=== PATIENT | female | born 1980 | race American Indian/Alaskan Native ===

== ENCOUNTER 2017-05-18 00:52 | Emergency (ER) | payer MEDICAID ==
--- NOTE | 2017-05-18 01:06 | ED PDOC ---
HPI: Psych/Substance Abuse Time Seen by Provider: 05/18/17 01:02 Chief Complaint (Nursing): Alcohol Ingestion Chief Complaint (Provider): etoh History Per: Patient, EMS, Family () Additional Complaint(s): Patient arrives via ambulance with for evaluation of facial and head injuries sustained status post trip and fall. states that patient was intoxicated when she fell to the ground. Patient did have a five-minute loss of consciousness witnessed by . She sustained facial abrasions and she is not sure of her last tetanus. Patient admits to drinking tonight and states she drinks daily. She denies any associated drug use. Past Medical History Reviewed: Historical Data, Nursing Documentation, Vital Signs Vital Signs: Last Vital Signs Temp 97.1 F L 05/18/17 00:57 Pulse 84 05/18/17 00:57 Resp 16 05/18/17 00:57 BP 127/97 H 05/18/17 00:57 Pulse Ox 100 05/18/17 00:57 - Medical History PMH: Anxiety, Depression, HTN - Surgical History Other surgeries: breast reduction - Family History Family History: States: No Known Family Hx - Living Arrangements Living Arrangements: With Family - Social History Current smoker - smoking cessation education provided: No Alcohol: Occasional - Immunization History Hx Tetanus Toxoid Vaccination: No (not sure of last tetanus) - Home Medications Home Medications: Ambulatory Orders Medication Instructions Recorded Folic Acid 1 mg PO DAILY 01/18/16 Multivitamin [Daily John] 1 tab PO DAILY 01/18/16 Thiamine Mononitrate [Optimum 100 mg PO DAILY 01/18/16 Vitamin B-1] - Allergies Allergies/Adverse Reactions: Allergies Allergy/AdvReac Type Severity Reaction Status Date / Time No Known Allergies Allergy Verified 05/18/17 00:57 Review of Systems ROS Statement: Except As Marked, All Systems Reviewed And Found Negative Neurological: Positive for: Other (facial and head injury with LOC) Psych: Positive for: Other (etoh) Physical Exam - Reviewed Nursing Documentation Reviewed: Yes Vital Signs Reviewed: Yes - Physical Exam Appears: Positive for: Well, Non-toxic, No Acute Distress Head Exam: Negative for: ATRAUMATIC (abrasions to left lateral orbit) Skin: Negative for: Rash Eye Exam: Positive for: Normal appearance, EOMI, PERRL ENT: Positive for: Other (left front upper incisor tooth is chipped, superficial 1 cm laceration noted to mucosal surface of lower lip, not involving chris border, no active bleeding, airway patent, uvula midline) Neck: Positive for: Normal Cardiovascular/Chest: Positive for: Regular Rate, Rhythm Respiratory: Positive for: Normal Breath Sounds Back: Positive for: Normal Inspection Extremity: Positive for: Normal ROM, Other (fluid filled blister left ankle region with no acute infection) Neurologic/Psych: Positive for: Alert, Other (intoxicated, answers some questions appopriately) - ECG O2 Sat by Pulse Oximetry: 100 Pulse Ox Interpretation: Normal - Other Rad CT head X-Ray: Read By Radiologist X-Ray Interpretation: see below CT facial bones X-Ray: Read By Radiologist X-Ray Interpretation: see below Medical Decision Making Medical Decision Makin37 year old acutely intoxicated female with head and facial injuries s/p fall Plan: test CT head and facial bones Tetanus booster CT head: Brain: No significant white matter disease. Mild prominence of the right perimesencephalic cistern, a variant versus a possible small benign arachnoid cyst, measures approximately 1.3 x 0.5 CM. No hemorrhage. No edema. Ventricles: Unremarkable. No ventriculomegaly. Bones/joints: Unremarkable. No acute fracture. Soft tissues: No significant acute soft tissue findings. Sinuses : Unremarkable as visualized. No acute sinusitis. Mastoid air cells: Unremarkable as visualized. No mastoid effusion. IMPRESSION: No acute intracranial findings. Clinical correlation and followup is recommended as clinically warranted CT facial bones: FINDINGS: Bones/joints: No acute fracture. Soft tissues: Minimal left facial, periorbital soft tissue swelling. Soft tissue swelling over the chin with minimal soft tissue emphysema and small radiopaque foreign bodies, which measures approximately 3 mm each. Calcifications within the nasal soft tissues. Orbits: Unremarkable. Sinuses: Unremarkable. No air-fluid levels. IMPRESSION: No acute fracture. Tiny radiopaque foreign bodies. Clinical correlation and followup is recommended as clinically warranted. No open wounds noted to chin, no active, bleeding, no intra-oral FB's noted. Brazer Crawler Torch attempted to clean lacerations to lower lip but patient would not allow for this. She would not keep her head still and kept pushing advertising copy writer's hand away. at bedside is aware of CT results. is sober and is willing to take patient home and assume responsibility of her given that she is intoxicated. Patient is stable for discharge with . Disposition - Clinical Impression Clinical Impression: Alcohol abuse with intoxication, Facial abrasion, Head injury, Requires a booster tetanus, Facial contusion - Patient ED Disposition Is Patient to be Admitted: No Counseled Patient/Family Regarding: Studies Performed, Diagnosis, Need For Followup - Disposition Referrals: [facility] [Outside] Disposition: Routine/Home Disposition Time: 04:21 Condition: FAIR Additional Instructions: Keep wounds clean and dry. Follow up with clinic or primary care doctor. Instructions: Diphtheria/Acellular Pertussis/Tetanus Vaccine (DTaP) (By injection), Head Injury (ED), Alcohol Intoxication (ED), Abrasion (ED), Facial Contusion (ED) Forms: [facility] (Romansh)
[2017-05-18 01:09] VITALS: RESP 16; O2SAT 100
[2017-05-18 05:22] VITALS: BP 125/80; PULSE 75; TEMP 97.9
--- NOTE | 2017-05-18 11:07 | CT ---
PROCEDURE: CT scan of the brain dated 02/10/2017 HISTORY: trauma COMPARISON: Correlation made with concurrent CT scan maxillofacial skeleton. Lester TECHNIQUE: Axial computed tomography images were obtained through the head/brain without intravenous contrast. Radiation dose: Total exam DLP = 1255.82 mGy-cm. This CT exam was performed using one or more of the following dose reduction techniques: Automated exposure control, adjustment of the mA and/or kV according to patient size, and/or use of iterative reconstruction technique. FINDINGS: HEMORRHAGE: No acute parenchymal, subarachnoid or hemorrhage. BRAIN: No evidence of large acute infarct. No obvious parenchymal nor extra-axial mass. Questionable prominent subarachnoid space versus tiny arachnoid cyst right perimesencephalic cistern. Mild age-appropriate volume loss. VENTRICLES: No obstructive hydrocephalus CALVARIUM: Calvarium is intact. PARANASAL SINUSES: Paranasal sinuses well-developed and currently well-aerated. MASTOID AIR CELLS: Unremarkable as visualized. No inflammatory changes. OTHER FINDINGS: None. IMPRESSION: No acute intracranial hemorrhage. Questionable prominent subarachnoid space versus tiny arachnoid cyst right perimesencephalic cistern.
--- NOTE | 2017-05-18 11:16 | CT ---
PROCEDURE: CT scan maxillofacial skeleton 05/18/2017 HISTORY: Trauma COMPARISON: Comparison made with concurrent CT scan of the brain. TECHNIQUE: Contiguous helical/transaxial CT images of the maxillofacial bones were obtained. Coronal and sagittal reformats were generated. Radiation dose: Total exam DLP = 698.25 mGy-cm. This CT exam was performed using one or more of the following dose reduction techniques: Automated exposure control, adjustment of the mA and/or kV according to patient size, and/or use of iterative reconstruction technique. . FINDINGS: NASAL BONES: No evidence of acute maxillofacial skeletal fracture. The osseous structures appear grossly intact. Note made of few tiny curvilinear and rounded calcific densities within the anterior nasal soft tissues- nonspecific. ORBITS: Bony orbits appear intact. Orbital contents unremarkable. The globes intact and lenses appropriately located. There are no retrobulbar hemorrhages or collections. Optic nerves and extraocular musculature unremarkable. PARANASAL SINUSES/ MASTOIDS: The visualized paranasal sinuses well-developed and currently well-aerated. There are no fluid levels seen to suggest acute sinusitis. MAXILLA: The maxilla appears intact including the anterior nasal spine. There appears to be some mild left premaxillary and infraorbital/periorbital soft tissue swelling. MANDIBLE/ TEMPOROMANDIBULAR JOINTS: There is localized soft tissue swelling over the mid and bilateral symphysis region and lower lip left-side greater than right with few tiny radiopaque densities in the subcutaneous tissues and skin surface on the left side within few bubbles of subcutaneous air suggesting overlying laceration. SKULL BASE: Unremarkable. TEMPORAL BONES: Middle ears and mastoid grossly unremarkable. OTHER FINDINGS: None. IMPRESSION: No evidence of acute displaced maxillofacial skeletal fracture. . The minor left premaxillary and periorbital soft tissue swelling. There is also localized swelling over the mandible and lower lip more so on the left side with few tiny radiopaque foreign bodies possibly representing gravel or likely glass with few bubbles of subcutaneous air suggesting overlying laceration. Nonspecific calcifications within the anterior nasal soft tissues. Preliminary report provided by overnight radiology service
== END 2017-05-18 05:22 | disposition home or self-care (01) ==
LOC: H.ER 00:52
DX: F10.129 Alcohol abuse with intoxication, unspecified (principal); S00.81XA Abrasion of other part of head, initial encounter; S09.90XA Unspecified injury of head, initial encounter; Z23 Encounter for immunization; S00.83XA Contusion of other part of head, initial encounter; Z86.59 Personal history of other mental and behavioral disorders; I10 Essential (primary) hypertension; Y90.8 Blood alcohol level of 240 mg/100 ml or more
CPT/HCPCS: 70450; 70486; 81025; 82948; 90471; 90715; 99283; G0480

== ENCOUNTER 2017-05-24 14:26 | Observation (INO) | payer SELFPAY ==
--- NOTE | 2017-05-24 14:32 | ED PDOC ---
HPI: Psych/Substance Abuse Time Seen by Provider: 05/24/17 14:30 Chief Complaint (Provider): etoh History Per: EMS Additional Complaint(s): BIBA by Police and EMS for public intoxication. Patient has history of etoh abuse and was found in street yelling and making a scene. She is known to ED for visits related to etoh abuse. Past Medical History Reviewed: Historical Data, Nursing Documentation, Vital Signs - Medical History PMH: Anxiety, Depression, HTN - Family History Family History: States: No Known Family Hx - Living Arrangements Living Arrangements: With Family - Social History Alcohol: > 2 Drinks/Day - Immunization History Hx Tetanus Toxoid Vaccination: Yes - Home Medications Home Medications: Ambulatory Orders Medication Instructions Recorded Folic Acid 1 mg PO DAILY 01/18/16 Multivitamin [Daily John] 1 tab PO DAILY 01/18/16 Thiamine Mononitrate [Optimum 100 mg PO DAILY 01/18/16 Vitamin B-1] - Allergies Allergies/Adverse Reactions: Allergies Allergy/AdvReac Type Severity Reaction Status Date / Time No Known Allergies Allergy Verified 05/18/17 00:57 - Laboratory Results Result Diagrams: 05/24/17 15:10 05/24/17 15:10 Medical Decision Making Medical Decision Makin37 year old intoxicated female Plan: 4 point restraints due to acute agitation, combativeness and elopement risk 2mg IM ativan, 5 mg IM haldol Admit to ED observation CBC CMP BAL UDS test ED OBSERVATION Date of observation admission: 05/24/17 Time of observation admission: 15:07 - Observation admission statement Patient is being placed in observation because:: ETOH, agitation - Goals of Observation Goals of observation are:: One-to-one bedside observation for acute alcohol intoxication, agitation and combativeness. - Progress Note Progress Note: 05/24/17 15:07 Patient arrives acutely agitated, trying to elope from ED and trying to injure ED staff members. Security was called to bedside and patient was placed in 4 point restraints for patient safety and safety of ED staff. Patient medicated with 2 mg IM Ativan and 5 mg IM Haldol for acute agitation. 05/24/17 15:55 Patient noted to be hypotensive at 86/43, Dr. Mccoy aware, fluid bolus ordered. Will continue to monitor patient. 05/24/17 16:53 BAL: 420, BP now 93/39, bolus is infusing 05/24/17 17:00 Restraints removed, BP now 99/56, patient is asleep, arousable with no airway compromise 05/24/17 16:20 Patient is asleep with stable vitals, 1:1 was discontinued. 05/24/17 18:10 Patient is asleep, arousable, vital signs stable, no airway compromise 05/24/17 20:20 Patient is asleep, arousable, vital signs stable, no airway compromise 05/24/17 22:09 Patient is awake, alert, vital signs stable, patient has steady gait, she is asking to go home. Patient is stable for discharge. Disposition - Clinical Impression Clinical Impression: Alcohol dependence, Alcohol abuse with intoxication - Patient ED Disposition Is Patient to be Admitted: No Counseled Patient/Family Regarding: Diagnosis, Need For Followup - Disposition Disposition: Routine/Home Disposition Time: 22:10 Condition: STABLE Results - Lab Results Lab Results: 05/24/17 05/24/17 15:10 15:10 WBC 7.8 RBC 4.03 Hgb 13.3 Hct 39.8 MCV 98.8 D MCH 33.0 H MCHC 33.4 RDW 13.6 Plt Count 229 MPV 9.3 Neut % (Auto) 57.9 Lymph % (Auto) 28.7 [place] % (Auto) 12.0 H Eos % (Auto) 0.2 Baso % (Auto) 1.2 Neut # 4.5 Lymph # 2.2 [place] # 0.9 H Eos # 0.0 Baso # 0.1 Sodium 146 Potassium 4.1 Chloride 105 Carbon Dioxide 18 L Anion Gap 27 H BUN 6 L Creatinine 0.9 Est GFR ( Amer) > 60 Est GFR (Non-Af Amer) > 60 Random Glucose 130 H Calcium 10.0 Total Bilirubin 0.5 AST 152 H ALT 113 H D Alkaline Phosphatase 79 Total Protein 8.6 H Albumin 5.0 Globulin 3.6 Albumin/Globulin Ratio 1.4 Alcohol, Quantitative 420 H*
[2017-05-24 15:27] LABS: BASO # 0.1 K/uL (0.0-0.2); BASO % 1.2 % (0.0-2.0); EOS % 0.2 % (0.0-4.0); HEMATOCRIT 39.8 % (34.0-47.0); LYMPH # 2.2 K/uL (1.0-4.3); LYMPH % 28.7 % (20.0-40.0); MEAN CELL VOLUME 98.8 fl (81.0-99.0); MEAN CORPUSCULAR HGB CONC 33.4 g/dL (33.0-37.0); MEAN PLATELET VOLUME 9.3 fl (7.2-11.7); MONO # 0.9 K/uL (0.0-0.8); NEUT # 4.5 K/uL (1.8-7.0); NEUT % 57.9 % (50.0-75.0); RED CELL DISTRIBUTION WIDTH 13.6 % (11.5-14.5); WHITE BLOOD COUNT 7.8 K/uL (4.8-10.8)
[2017-05-24 15:38] LABS: ALB/GLOB RATIO 1.4 (1.0-2.1); ALKALINE PHOSPHATASE 79 U/L (38-126); ALT/SGPT 113 U/L (9-52); AST/SGOT 152 U/L (14-36); BILIRUBIN,TOTAL 0.5 mg/dl (0.2-1.3); BLOOD UREA NITROGEN 6 mg/dl (7-17); CARBON DIOXIDE 18 mmol/L (22-30); CHLORIDE 105 mmol/L (98-107); GFR AFRICAN-AMERICAN > 60; GLUCOSE,RANDOM 130 mg/dL (65-105); POTASSIUM 4.1 MMOL/L (3.6-5.0); SODIUM 146 mmol/l (132-148); TOTAL PROTEIN 8.6 G/DL (6.3-8.2)
[2017-05-24] MEDS ORDERED: Sodium Chloride 0.9% 1,000 ML IV STA (15:57)
[2017-05-24 16:16] LABS: ALCOHOL SERUM 420 mg/dl (0-10)
[2017-05-24 19:40] VITALS: BP 100/59; PULSE 83; RESP 16; O2SAT 99
== END 2017-05-24 22:00 | disposition home or self-care (01) ==
LOC: H.ER 14:26 → H.EROBSV 15:04
PROVIDERS: ADMIT Emergency Medicine; ATTEND Emergency Medicine
DX: F10.129 Alcohol abuse with intoxication, unspecified (principal); I10 Essential (primary) hypertension; F32.9 Major depressive disorder, single episode, unspecified; F41.9 Anxiety disorder, unspecified; Y90.8 Blood alcohol level of 240 mg/100 ml or more
CPT/HCPCS: 80053; 81025; 85025; 96372; 99285; G0378; G0480; J1630; J2060; J7040

== ENCOUNTER 2017-06-14 00:19 | Observation (INO) | payer SELFPAY ==
--- NOTE | 2017-06-14 00:57 | ED PDOC ---
HPI: Psych/Substance Abuse Time Seen by Provider: 06/14/17 00:21 Chief Complaint (Nursing): Alcohol Ingestion Chief Complaint (Provider): etoh History Per: Patient, EMS Additional History Per: Patient, EMS Additional Complaint(s): 37 y/o female brought in by EMS for eval of acute alcohol intoxication. Patient with slurred speech and alcohol on breath, admits to drinking tonight. Denies acute medical or psychiatric complaints. Past Medical History Reviewed: Historical Data, Nursing Documentation, Vital Signs Vital Signs: Last Vital Signs Temp 98.7 F 06/14/17 00:21 Pulse 78 06/14/17 00:21 Resp 18 06/14/17 00:21 BP 150/100 H 06/14/17 00:21 Pulse Ox 100 06/14/17 00:21 - Medical History PMH: Anxiety, Depression, HTN - Family History Family History: States: No Known Family Hx - Immunization History Hx Tetanus Toxoid Vaccination: Yes - Home Medications Home Medications: Ambulatory Orders Medication Instructions Recorded Folic Acid 1 mg PO DAILY 01/18/16 Multivitamin [Daily John] 1 tab PO DAILY 01/18/16 Thiamine Mononitrate [Optimum 100 mg PO DAILY 01/18/16 Vitamin B-1] - Allergies Allergies/Adverse Reactions: Allergies Allergy/AdvReac Type Severity Reaction Status Date / Time No Known Allergies Allergy Verified 05/18/17 00:57 Review of Systems ROS Statement: Except As Marked, All Systems Reviewed And Found Negative Physical Exam - Reviewed Nursing Documentation Reviewed: Yes Vital Signs Reviewed: Yes - Physical Exam Appears: Positive for: Well, Non-toxic, No Acute Distress Head Exam: Positive for: ATRAUMATIC, NORMAL INSPECTION, NORMOCEPHALIC Skin: Positive for: Normal Color Eye Exam: Positive for: Normal appearance Cardiovascular/Chest: Positive for: Regular Rate, Rhythm Respiratory: Positive for: Normal Breath Sounds Back: Positive for: Normal Inspection Extremity: Positive for: Normal ROM Neurologic/Psych: Positive for: Alert, Oriented - Laboratory Results Result Diagrams: 06/14/17 02:51 06/14/17 02:51 - ECG O2 Sat by Pulse Oximetry: 100 - Progress ED Course And Treament: Patient attempting to get out of bed to find significant other with unsteady gait. Escorted back to bed and placed on 1:1. Patient again attempted to get out of bed, aggressive, agitated. Patient unwilling to cooperate with alternative measures offered; restrained and medicated for acute agitation/safety. ED OBSERVATION Date of observation admission: 06/14/17 Time of observation admission: 02:13 - Observation admission statement Patient is being placed in observation because:: acute alcohol intoxication - Goals of Observation Goals of observation are:: observe for clinical sobriety - Progress Note Progress Note: 06/14/17 03:14 Patient sleeping 06/14/17 4:45 patient sleeping; no distress 6:00 Patient sleeping; no distress Disposition - Clinical Impression Clinical Impression: Alcohol abuse with intoxication - Disposition Disposition: Transfer of Care Disposition Time: 06:00 Condition: STABLE Patient Signed Over To: Tim Mcnulty Handoff Comments: pending sobriety
[2017-06-14 02:53] LABS: BASO # 0.1 K/uL (0.0-0.2); BASO % 1.3 % (0.0-2.0); EOS % 0.4 % (0.0-4.0); HEMATOCRIT 37.7 % (34.0-47.0); LYMPH # 1.5 K/uL (1.0-4.3); LYMPH % 19.9 % (20.0-40.0); MEAN CELL VOLUME 99.4 fl (81.0-99.0); MEAN CORPUSCULAR HEMOGLOBIN 32.6 pg (27.0-31.0); MEAN CORPUSCULAR HGB CONC 32.8 g/dL (33.0-37.0); MEAN PLATELET VOLUME 8.8 fl (7.2-11.7); MONO # 0.3 K/uL (0.0-0.8); MONO % 4.6 % (0.0-10.0); NEUT # 5.6 K/uL (1.8-7.0); NEUT % 73.8 % (50.0-75.0); NRBC % 0.1 % (0.0-0.0); RED CELL DISTRIBUTION WIDTH 13.7 % (11.5-14.5); WHITE BLOOD COUNT 7.6 K/uL (4.8-10.8)
[2017-06-14 03:08] LABS: BLOOD UREA NITROGEN 7 mg/dl (7-17); GFR AFRICAN-AMERICAN > 60; GLUCOSE,RANDOM 84 mg/dL (65-105); SODIUM 148 mmol/l (132-148)
[2017-06-14 03:09] LABS: ALB/GLOB RATIO 1.4 (1.0-2.1); ALT/SGPT 61 U/L (9-52); AST/SGOT 55 U/L (14-36); BILIRUBIN,TOTAL 0.3 mg/dl (0.2-1.3); CALCIUM 8.5 mg/dL (8.4-10.2); CARBON DIOXIDE 23 mmol/L (22-30); CHLORIDE 110 mmol/L (98-107); TOTAL PROTEIN 7.3 G/DL (6.3-8.2)
[2017-06-14 03:10] LABS: ALKALINE PHOSPHATASE 53 U/L (38-126)
[2017-06-14 03:25] LABS: ALCOHOL SERUM 388 mg/dl (0-10)
[2017-06-14] MEDS ORDERED: Potassium Chloride 20 mEq ER Tab PO ONE ×2 (03:35→07:00)
--- NOTE | 2017-06-14 05:50 | ED PDOC ---
- Laboratory Results Result Diagrams: 06/14/17 02:51 06/14/17 02:51 - ECG O2 Sat by Pulse Oximetry: 100 (RA) Pulse Ox Interpretation: Normal Medical Decision Making Medical Decision Making: Time: 06:00 --Patient is signed out by Elizabet White PA-C to me, pending clinical sobriety. See ED-OBS for further documentation Scribe Attestation: Documented by Anabela Herzog, acting as a scribe for Tim Mcnulty MD Provider Scribe Attestation: All medical record entries made by the Scribe were at my direction and personally dictated by me. I have reviewed the chart and agree that the record accurately reflects my personal performance of the history, physical exam, medical decision making, and the department course for this patient. I have also personally directed, reviewed, and agree with the discharge instructions and disposition. Disposition Counseled Patient/Family Regarding: Diagnosis, Need For Followup - Clinical Impression Clinical Impression: Alcohol abuse with intoxication - POA Present On Arrival: None - Disposition Disposition: Routine/Home Disposition Time: 02:13 Condition: STABLE ED OBSERVATION Date of observation admission: 06/14/17 Time of observation admission: 02:13 - Observation admission statement Patient is being placed in observation because:: ETOH intoxication - Goals of Observation Goals of observation are:: Clinical sobriety - Progress Note Progress Note: 06/14/17 Time: 06:00 --Patient is resting. Vital signs stable. Time: 07:00 --Patient is ambulating in the ED with steady gait. No signs of intoxication. Patient is stable for discharge home. Clinical Impression: Alcohol intoxication
[2017-06-14 06:54] VITALS: BP 142/82; PULSE 82; RESP 14; TEMP 97.9
[2017-06-14 07:02] VITALS: O2SAT 100
== END 2017-06-14 07:22 | disposition home or self-care (01) ==
LOC: H.ER 00:19 → H.EROBSV 02:13
PROVIDERS: ADMIT Emergency Medicine; ATTEND Emergency Medicine
DX: F10.129 Alcohol abuse with intoxication, unspecified (principal); I10 Essential (primary) hypertension; F41.9 Anxiety disorder, unspecified; F32.89 Other specified depressive episodes; Y90.8 Blood alcohol level of 240 mg/100 ml or more
CPT/HCPCS: 80053; 85025; 96372; 99283; G0378; G0480; J1630; J2060

== ENCOUNTER 2017-06-29 22:19 | Emergency (ER) | payer SELFPAY ==
[2017-06-29 23:41] LABS: BASO # 0.1 K/uL (0.0-0.2); BASO % 1.7 % (0.0-2.0); EOS % 0.5 % (0.0-4.0); HEMATOCRIT 37.3 % (34.0-47.0); LYMPH # 1.4 K/uL (1.0-4.3); LYMPH % 34.9 % (20.0-40.0); MEAN CELL VOLUME 97.8 fl (81.0-99.0); MEAN CORPUSCULAR HEMOGLOBIN 32.5 pg (27.0-31.0); MEAN CORPUSCULAR HGB CONC 33.2 g/dL (33.0-37.0); MEAN PLATELET VOLUME 8.8 fl (7.2-11.7); MONO # 0.6 K/uL (0.0-0.8); NEUT % 47.9 % (50.0-75.0); NRBC % 0.1 % (0.0-0.0); RED CELL DISTRIBUTION WIDTH 13.6 % (11.5-14.5); WHITE BLOOD COUNT 4.1 K/uL (4.8-10.8)
--- NOTE | 2017-06-29 23:41 | ED PDOC ---
HPI: Psych/Substance Abuse Time Seen by Provider: 06/29/17 23:02 Chief Complaint (Nursing): Lower Extremity Problem/Injury Chief Complaint (Provider): Lower Extremity Problem/Injury ED Caveat: Intoxicated History Per: Patient History/Exam Limitations: intoxication Onset/Duration Of Symptoms: Days (x2) Current Symptoms Are (Timing): Still Present Suicide/Self Injury Attempted (Context): None Modifying Factor(s): Alcohol Associated Symptoms: Suicidal Thoughts Additional Complaint(s): Dutch Mckeon is a 37 year old female with previous medical history of alcoholism, hypertension, anxiety and depression, who presents to the emergency department with a complaint of left thigh injury associated with intoxication, suicidal and homicidal ideation ongoing for 2 days. Denied any further medial complaints. Patient stated she was recently admitted in outpatient psychiatric hospital. History is unreliable due to patient's current state of intoxication. PMD: none provided Past Medical History Reviewed: Historical Data, Nursing Documentation, Vital Signs Vital Signs: Last Vital Signs Temp 98.5 F 06/29/17 22:28 Pulse 111 H 06/29/17 22:28 Resp 20 06/29/17 22:28 BP 149/101 H 06/29/17 22:28 Pulse Ox 100 06/29/17 22:28 - Medical History PMH: Anxiety, Depression, HTN - Family History Family History: States: Unknown Family Hx - Social History Current smoker - smoking cessation education provided: Yes Ex-Smoker (has not smoked in the last 12 months): No Alcohol: > 2 Drinks/Day Drugs: Denies - Immunization History Hx Tetanus Toxoid Vaccination: Yes - Home Medications Home Medications: Ambulatory Orders Medication Instructions Recorded Folic Acid 1 mg PO DAILY 01/18/16 Multivitamin [Daily John] 1 tab PO DAILY 01/18/16 Thiamine Mononitrate [Optimum 100 mg PO DAILY 01/18/16 Vitamin B-1] - Allergies Allergies/Adverse Reactions: Allergies Allergy/AdvReac Type Severity Reaction Status Date / Time No Known Allergies Allergy Verified 05/18/17 00:57 Review of Systems Review Of Systems: ROS cannot be obtained secondary to pt's inabilty to answer questions. (intoxication) Musculoskeletal: Positive for: Leg Pain (left thigh injury) Psych: Positive for: Suicidal ideation (and homicidal ideation) Physical Exam - Reviewed Nursing Documentation Reviewed: Yes Vital Signs Reviewed: Yes - Physical Exam Appears: Positive for: No Acute Distress Head Exam: Positive for: ATRAUMATIC, NORMAL INSPECTION, NORMOCEPHALIC Skin: Positive for: Normal Color Eye Exam: Positive for: Normal appearance, Conjunctival injection Neck: Positive for: Normal, Supple Cardiovascular/Chest: Positive for: Regular Rate, Rhythm Respiratory: Positive for: Normal Breath Sounds, Accessory Muscle Use. Negative for: Decreased Breath Sounds, Respiratory Distress Pulses-Dorsalis Pedis (L): 2+ Extremity: Positive for: Normal ROM, Tenderness (left anterior thigh), Other ( small left anterior thigh hematoma ). Negative for: Calf Tenderness, Deformity , Swelling Neurologic/Psych: Positive for: Alert (x2), Mood/Affect (intoxicated; crying; uncooperative-attempting to get out of bed multiple times) - Laboratory Results Result Diagrams: 06/29/17 23:38 06/29/17 23:38 - ECG O2 Sat by Pulse Oximetry: 100 (RA) Pulse Ox Interpretation: Normal Medical Decision Making Medical Decision Making: Initial Impression: Alcohol intoxication; suicidal ideation; contusion Initial Plan: * Acetaminophen * Alcohol serum * BMP * Drug screen, urine * Salicylate * CBC * Motrin 600mg PO * 1:1 OBS * Xray femur (left) * Urinalysis Time: 2300 --Patient is uncooperative and has been attempting to get out of hospital bed multiple times. Time: 0700 --Patient was signed out to Dr. Otf Sánchez. Pending clinical sobriety and crisis evaluation. Scribe Attestation: Documented by Aleisha Flores, acting as a scribe for David Breaux MD. Provider Scribe Attestation: All medical record entries made by the Scribe were at my direction and personally dictated by me. I have reviewed the chart and agree that the record accurately reflects my personal performance of the history, physical exam, medical decision making, and the department course for this patient. I have also personally directed, reviewed, and agree with the discharge instructions and disposition. Disposition - Clinical Impression Clinical Impression: Alcohol abuse - Patient ED Disposition Is Patient to be Admitted: No - Disposition Disposition: Transfer of Care Disposition Time: 07:00 Condition: STABLE Forms: [facility] (Martiniquais) Patient Signed Over To: Otf Sánchez Handoff Comments: pending sobriety and crisis eval
[2017-06-29 23:52] LABS: BLOOD UREA NITROGEN 11 mg/dl (7-17); CALCIUM 9.3 mg/dL (8.4-10.2); CARBON DIOXIDE 23 mmol/L (22-30); CHLORIDE 105 mmol/L (98-107); GFR AFRICAN-AMERICAN > 60; GLUCOSE,RANDOM 108 mg/dL (65-105); POTASSIUM 3.8 MMOL/L (3.6-5.0); SODIUM 147 mmol/l (132-148)
[2017-06-30 00:10] LABS: ALCOHOL SERUM 375 mg/dl (0-10)
[2017-06-30 00:28] LABS: RBC URINE 1 /hpf (0-3); URINE BACTERIA RARE (<OCC); URINE BILIRUBIN NEGATIVE (NEGATIVE); URINE BLOOD SMALL (NEGATIVE); URINE COLOR STRAW (YELLOW); URINE GLUCOSE (UA) NEG (Normal); URINE KETONE NEGATIVE (NEGATIVE); URINE LEUKOCYTE ESTERASE NEG Leu/uL (Negative); URINE PROTEIN NEGATIVE (NEGATIVE); URINE UROBILINOGEN 0.2-1.0 mg/dL (0.2-1.0); WBC URINE < 1 /hpf (0-5)
[2017-06-30 05:46] VITALS: RESP 18; TEMP 98.2
--- NOTE | 2017-06-30 07:41 | ED PDOC ---
- Laboratory Results Result Diagrams: 06/29/17 23:38 06/29/17 23:38 - ECG O2 Sat by Pulse Oximetry: 100 (RA) Pulse Ox Interpretation: Normal Medical Decision Making Medical Decision Making: Patient signed out to provider at [address] Breaux pending clinical sobriety and crisis evaluation. Scribe Attestation Documented by Suyapa Ramirez acting as a scribe for Otf Sánchez MD. Provider Attestation All medical record entries made by the Scribe were at my direction and personally dictated by me. I have reviewed the chart and agree that the record accurately reflects my personal performance of the history, physical exam, medical decision making, and the department course for this patient. I have also personally directed, reviewed, and agree with the discharge instructions and disposition. Disposition - Clinical Impression Clinical Impression: Alcohol abuse - POA Present On Arrival: None - Disposition Disposition: Routine/Home Disposition Time: 11:41 Condition: FAIR Additional Instructions: FOLLOW UP AT [facility] [address] [place] [address] Instructions: Abuse of Alcohol (ED) Forms: [employer] (Kazakh)
--- NOTE | 2017-06-30 10:53 | RAD ---
PROCEDURE: Left femur HISTORY: s/p injury COMPARISON: None TECHNIQUE: Two views Standard protocol for this study/examination. FINDINGS: No significant/acute osseous, articular or soft tissue abnormalities. IMPRESSION: No acute findings related to/accounting for the clinical presentation. Please note: No preliminary report/ innterpretation of this examination provided by emergency department personnel.
[2017-06-30 12:04] VITALS: BP 115/68; PULSE 78; O2SAT 98
== END 2017-06-30 12:04 | disposition home or self-care (01) ==
LOC: H.ER 22:19
DX: F10.129 Alcohol abuse with intoxication, unspecified (principal); R45.851 Suicidal ideations; I10 Essential (primary) hypertension; F32.2 Major depressive disorder, single episode, severe without psychotic features; M79.605 Pain in left leg
CPT/HCPCS: 73552; 80048; 81003; 81025; 85025; 99285; G0480

== ENCOUNTER 2017-07-13 14:17 | Emergency (ER) | payer SELFPAY ==
--- NOTE | 2017-07-13 14:50 | ED PDOC ---
HPI: Psych/Substance Abuse Time Seen by Provider: 07/13/17 14:26 Chief Complaint (Nursing): Alcohol Ingestion Chief Complaint (Provider): EtOH ED Caveat: Intoxicated History/Exam Limitations: intoxication Additional Complaint(s): 37yo female, brought to the ED by EMS after EMS was called to the [facility] by the Police as patient was being disruptive. Patient accompanied to the ED by her significant other who reports patient drinks everyday. Due to patient's intoxicated state, she is unable to provide a full HPI or ROS. Patient with slurred speech and unsteady gait upon arrival. Past Medical History Reviewed: Historical Data, Nursing Documentation, Vital Signs Vital Signs: Last Vital Signs Temp 98 F 07/13/17 14:19 Pulse 128 H 07/13/17 14:19 Resp 18 07/13/17 14:19 BP 146/62 07/13/17 14:19 Pulse Ox 99 07/13/17 14:19 - Medical History PMH: Anxiety, Depression, HTN Denies: Diabetes, Hepatitis, HIV, Seizures, Sexually Transmitted Disease - Surgical History Surgical History: No Surg Hx - Family History Family History: States: No Known Family Hx, Unknown Family Hx - Immunization History Hx Tetanus Toxoid Vaccination: Yes - Home Medications Home Medications: Ambulatory Orders Medication Instructions Recorded Folic Acid 1 mg PO DAILY 01/18/16 Multivitamin [Daily John] 1 tab PO DAILY 01/18/16 Thiamine Mononitrate [Optimum 100 mg PO DAILY 01/18/16 Vitamin B-1] - Allergies Allergies/Adverse Reactions: Allergies Allergy/AdvReac Type Severity Reaction Status Date / Time No Known Allergies Allergy Verified 05/18/17 00:57 Review of Systems Review Of Systems: ROS cannot be obtained secondary to pt's inabilty to answer questions. (patient with acute alcohol intoxication) Physical Exam - Reviewed Nursing Documentation Reviewed: Yes Vital Signs Reviewed: Yes - Physical Exam ENT: Positive for: Other (alcohol on breath) Cardiovascular/Chest: Positive for: Regular Rate, Rhythm Respiratory: Negative for: Respiratory Distress Neurologic/Psych: Positive for: Alert, Gait (unsteady) - ECG O2 Sat by Pulse Oximetry: 99 (RA) Pulse Ox Interpretation: Normal Medical Decision Making Medical Decision Making: Time: 1435 Impression: EtOH intoxication Plan: -- Patient increasingly agitated and uncooperative; due to risks of harm to self and staff, patient placed in 4-point restraints. Patient given 2mg Ativan as well. -- Alcohol serum 1522: pt stable well appearing and restraints removed. pt being monitored. 1654: pt stable and well appearing, sleeping. 1830: Patient sleeping in room, no acute distress. 20:00 Patient resting in room, no acute distress. pt clinically more sober wants to go home. pt d.c home stable VS Scribe Attestation: Documented by Sandra Miramontes acting as a scribe for SAUL Ohara Provider Attestation: All medical record entries made by the Scribe were at my direction and personally dictated by me. I have reviewed the chart and agree that the record accurately reflects my personal performance of the history, physical exam, medical decision making, and the department course for this patient. I have also personally directed, reviewed, and agree with the discharge instructions and disposition. Disposition - Clinical Impression Clinical Impression: Alcohol abuse with intoxication - Patient ED Disposition Is Patient to be Admitted: No Counseled Patient/Family Regarding: Need For Followup - Disposition Disposition: Routine/Home Disposition Time: 22:59 Condition: IMPROVED Instructions: Alcohol Intoxication (ED) Forms: [facility] (Russian)
[2017-07-13 23:04] VITALS: TEMP 98
--- NOTE | 2017-07-14 00:05 | ED PDOC ---
- ECG O2 Sat by Pulse Oximetry: 99 Medical Decision Making Medical Decision Making: Case endorsed to health science writer from JOSELIN Springer at midnight pending clinical sobriety Upon my eval, Pt in bed asleep in NAD. Responsive to verbal stimuli. 0400: Pt awake and ambulated to restroom without difficulty. Stable for discharge in am. Disposition - Clinical Impression Clinical Impression: Alcohol abuse with intoxication - POA Present On Arrival: None - Disposition Disposition: Routine/Home Disposition Time: 04:16 Condition: IMPROVED Instructions: Alcohol Intoxication (ED) Forms: [facility] (Bulgarian)
[2017-07-14 03:44] VITALS: BP 115/80; PULSE 75; RESP 16
[2017-07-14 04:16] VITALS: O2SAT 99
== END 2017-07-14 04:15 | disposition home or self-care (01) ==
LOC: H.ER 14:17
DX: F10.10 Alcohol abuse, uncomplicated (principal)
CPT/HCPCS: 82948; 96372; 99284; G0480; J2060

== ENCOUNTER 2017-09-09 22:12 | Emergency (ER) | payer SELFPAY ==
[2017-09-09 22:14] VITALS: BMI 23.4
[2017-09-09 22:20] VITALS: RESP 16; TEMP 98.2
--- NOTE | 2017-09-09 22:51 | ED PDOC ---
HPI: Psych/Substance Abuse Time Seen by Provider: 09/09/17 22:21 Chief Complaint (Nursing): Alcohol Ingestion Chief Complaint (Provider): aggressive behavior ED Caveat: Intoxicated Additional Complaint(s): Ambulance called to scene reporting pt was "fighting". Per police pt was initially arguing loudly with boyfriend, who was no longer on scene on arrival. She was found on the ground and only yelling at police with signs of intoxication. Pt only yelling in ER incoherently and not reporting any history. Past Medical History Reviewed: Historical Data, Nursing Documentation, Vital Signs, Unable To Obtain (directly for patient) Vital Signs: Last Vital Signs Temp 98.2 F 09/09/17 22:14 Pulse 132 H 09/09/17 22:14 Resp 16 09/09/17 22:14 BP 128/90 09/09/17 22:14 Pulse Ox 99 09/09/17 22:14 - Medical History PMH: Anxiety, Depression, HTN Denies: Diabetes, Hepatitis, HIV, Seizures, Sexually Transmitted Disease - Family History Family History: States: Unknown Family Hx - Immunization History Hx Tetanus Toxoid Vaccination: Yes - Home Medications Home Medications: Ambulatory Orders Medication Instructions Recorded Unobtainable 07/14/17 - Allergies Allergies/Adverse Reactions: Allergies Allergy/AdvReac Type Severity Reaction Status Date / Time No Known Allergies Allergy Verified 09/09/17 22:13 Review of Systems Review Of Systems: ROS cannot be obtained secondary to pt's inabilty to answer questions. Physical Exam - Reviewed Nursing Documentation Reviewed: Yes Vital Signs Reviewed: Yes - Physical Exam Appears: Positive for: In Acute Distress (yelling in ER, acutely psychotic) Head Exam: Positive for: ATRAUMATIC, NORMOCEPHALIC Skin: Positive for: Warm, Dry Eye Exam: Positive for: EOMI, PERRL ENT: Positive for: Pharynx Is (clear) Neck: Positive for: Painless ROM, Supple Cardiovascular/Chest: Positive for: Tachycardia. Negative for: Murmur Respiratory: Negative for: Accessory Muscle Use, Respiratory Distress Gastrointestinal/Abdominal: Positive for: Soft. Negative for: Tenderness Back: Negative for: Decreased ROM Extremity: Negative for: Deformity, Swelling Lymphatic: Positive for: Deferred Neurologic/Psych: Positive for: Alert, Mood/Affect (agitated and anxious, poor concentration, incoherent with poor thought process, poor judgement), Gait ( unsteady (almost fell in ER multiple times)), Other (slurred speech). Negative for: Oriented - Laboratory Results Result Diagrams: 09/09/17 23:15 09/09/17 23:15 - ECG O2 Sat by Pulse Oximetry: 99 - Progress ED Course And Treament: Acutely psychotic in ER requiring restraint for safety and medication 1045p Pt sleeping and calm. - Critical Care Total Time (In Min): 30 Documented Critical Care: Time excludes all time spent performint seperately billable procedures Disposition - Clinical Impression Clinical Impression: Alcohol intoxication - Disposition Disposition: Transfer of Care Disposition Time: 00:15 Condition: STABLE Patient Signed Over To: Tim Mcnulty Handoff Comments: Pending ER workup reassessment and final ER disposition
[2017-09-09 23:51] LABS: BASO # 0.1 K/uL (0.0-0.2); BASO % 1.1 % (0.0-2.0); EOS % 0.5 % (0.0-4.0); HEMATOCRIT 41.1 % (34.0-47.0); LYMPH # 1.9 K/uL (1.0-4.3); LYMPH % 25.1 % (20.0-40.0); MEAN CELL VOLUME 95.2 fl (81.0-99.0); MEAN CORPUSCULAR HEMOGLOBIN 31.8 pg (27.0-31.0); MEAN CORPUSCULAR HGB CONC 33.5 g/dL (33.0-37.0); MEAN PLATELET VOLUME 9.1 fl (7.2-11.7); MONO # 0.5 K/uL (0.0-0.8); MONO % 7.3 % (0.0-10.0); NEUT # 4.9 K/uL (1.8-7.0); NRBC % 0.1 % (0.0-0.0); RED CELL DISTRIBUTION WIDTH 13.6 % (11.5-14.5); WHITE BLOOD COUNT 7.5 K/uL (4.8-10.8)
[2017-09-10 00:04] LABS: ALB/GLOB RATIO 1.4 (1.0-2.1); ALKALINE PHOSPHATASE 59 U/L (38-126); ALT/SGPT 55 U/L (9-52); AST/SGOT 58 U/L (14-36); BILIRUBIN,TOTAL 0.4 mg/dl (0.2-1.3); BLOOD UREA NITROGEN 16 mg/dl (7-17); CALCIUM 8.6 mg/dL (8.4-10.2); CARBON DIOXIDE 18 mmol/L (22-30); CHLORIDE 109 mmol/L (98-107); GFR AFRICAN-AMERICAN > 60; GLUCOSE,RANDOM 105 mg/dL (65-105); MAGNESIUM 1.8 MG/DL (1.6-2.3); PHOSPHOROUS 3.2 mg/dl (2.5-4.5); POTASSIUM 3.9 MMOL/L (3.6-5.0); SODIUM 148 mmol/l (132-148)
[2017-09-10 00:12] LABS: ALCOHOL SERUM 400 mg/dl (0-10)
--- NOTE | 2017-09-10 00:31 | ED PDOC ---
- Laboratory Results Result Diagrams: 09/09/17 23:15 09/09/17 23:15 - ECG O2 Sat by Pulse Oximetry: 99 Medical Decision Making Medical Decision Makin Patient signed out to me from Dr. Blount pending sobriety and re-evaluation. 0446 Patient is awake, alert, and oriented x3. Patient walks with a steady gait and is stable for discharge home. Scribe Attestation: Documented by Latoya Quintana acting as a scribe for Tim Mcnulty MD. Scribe Attestation: All medical record entries made by the Scribe were at my direction and personally dictated by me. I have reviewed the chart and agree that the record accurately reflects my personal performance of the history, physical exam, medical decision making, and the department course for this patient. I have also personally directed, reviewed, and agree with the discharge instructions and disposition. Disposition - Clinical Impression Clinical Impression: Alcohol intoxication - POA Present On Arrival: None - Disposition Disposition: Routine/Home Disposition Time: 04:46 Condition: STABLE Instructions: Alcohol Intoxication (ED) Forms: [facility] ([place]er)
[2017-09-10 06:12] VITALS: BP 132/78; PULSE 86
[2017-09-10 07:01] VITALS: O2SAT 99
== END 2017-09-10 06:12 | disposition home or self-care (01) ==
LOC: H.ER 22:12
DX: F10.129 Alcohol abuse with intoxication, unspecified (principal); F32.9 Major depressive disorder, single episode, unspecified; F41.9 Anxiety disorder, unspecified; I10 Essential (primary) hypertension
CPT/HCPCS: 80053; 83735; 84100; 85025; 96372; 99285; G0480; J1630; J2060

== ENCOUNTER 2017-10-09 20:58 | Emergency (ER) | payer SELFPAY ==
[2017-10-09 20:58] VITALS: BMI 23.4
[2017-10-09 21:06] VITALS: BP 145/70; PULSE 104; RESP 22; TEMP 98; O2SAT 97
--- NOTE | 2017-10-09 21:32 | ED PDOC ---
HPI: Psych/Substance Abuse Time Seen by Provider: 10/09/17 21:13 Chief Complaint (Nursing): Alcohol Ingestion Chief Complaint (Provider): etoh History Per: EMS History/Exam Limitations: intoxication Additional History Per: EMS Additional Complaint(s): 37 y/o female brought in by EMS for acute alcohol intoxication. Patient admits to drinking tonight. Denies acute medical or psychiatric complaints. Past Medical History Reviewed: Historical Data, Nursing Documentation, Vital Signs Vital Signs: Last Vital Signs Temp 98 F 10/09/17 21:03 Pulse 104 H 10/09/17 21:03 Resp 22 10/09/17 21:03 BP 145/70 10/09/17 21:03 Pulse Ox 97 10/09/17 21:03 - Medical History PMH: Anxiety, Depression, HTN Denies: Diabetes, Hepatitis, HIV, Seizures, Sexually Transmitted Disease - Family History Family History: States: Unknown Family Hx - Immunization History Hx Tetanus Toxoid Vaccination: Yes - Home Medications Home Medications: Ambulatory Orders Medication Instructions Recorded Unobtainable 07/14/17 - Allergies Allergies/Adverse Reactions: Allergies Allergy/AdvReac Type Severity Reaction Status Date / Time No Known Allergies Allergy Verified 10/09/17 21:03 Review of Systems ROS Statement: Except As Marked, All Systems Reviewed And Found Negative Physical Exam - Reviewed Nursing Documentation Reviewed: Yes Vital Signs Reviewed: Yes - Physical Exam Appears: Positive for: Well, Non-toxic, No Acute Distress Head Exam: Positive for: ATRAUMATIC, NORMAL INSPECTION, NORMOCEPHALIC Skin: Positive for: Normal Color Eye Exam: Positive for: Normal appearance ENT: Positive for: Normal ENT Inspection Cardiovascular/Chest: Positive for: Regular Rate, Rhythm Respiratory: Positive for: Normal Breath Sounds Gastrointestinal/Abdominal: Positive for: Normal Exam Back: Positive for: Normal Inspection Extremity: Positive for: Normal ROM Neurologic/Psych: Positive for: Alert, Oriented - ECG O2 Sat by Pulse Oximetry: 97 - Progress ED Course And Treament: accucheck, alcohol level 23:00 Patient sleeping; no distress 10/10/17 00:30 Patient sleeping; no distress 2:00 Patient sleeping; no distress 3:30 Patient sleeping; no distress 5:00 Patient awake, alert, oriented x3. Ambulating steady gait Stable for discharge Disposition - Clinical Impression Clinical Impression: Alcohol abuse - Patient ED Disposition Is Patient to be Admitted: No Counseled Patient/Family Regarding: Studies Performed, Diagnosis, Need For Followup - Disposition Disposition: Routine/Home Disposition Time: 05:17 Condition: STABLE Instructions: Abuse of Alcohol (ED)
== END 2017-10-10 06:03 | disposition home or self-care (01) ==
LOC: H.ER 20:58
DX: F10.129 Alcohol abuse with intoxication, unspecified (principal); I10 Essential (primary) hypertension; Z86.59 Personal history of other mental and behavioral disorders
CPT/HCPCS: 82948; 99282; G0480

== ENCOUNTER 2017-11-14 15:23 | Emergency (ER) | payer SELFPAY ==
[2017-11-14 15:24] VITALS: BMI 23.4
[2017-11-14 15:30] VITALS: BP 133/81; PULSE 102; RESP 16; TEMP 98.7; O2SAT 98
== END 2017-11-14 15:45 | disposition left against medical advice (07) ==
LOC: H.ER 15:23
DX: Z02.89 Encounter for other administrative examinations (principal)

== ENCOUNTER 2017-11-28 17:38 | Emergency (ER) | payer SELFPAY ==
[2017-11-28 17:38] VITALS: BMI 23.4
[2017-11-28 17:47] VITALS: TEMP 98.7
--- NOTE | 2017-11-28 18:14 | ED PDOC ---
HPI: Psych/Substance Abuse Time Seen by Provider: 11/28/17 17:49 Chief Complaint (Nursing): Alcohol Ingestion Chief Complaint (Provider): EtOH ED Caveat: Intoxicated History/Exam Limitations: intoxication Current Symptoms Are (Timing): Still Present Modifying Factor(s): Alcohol Additional Complaint(s): 37yo female, brought to ER by EMS for evaluation after she was found publicly intoxicated. A full HPI and ROS is unavailable as patient is intoxicated. Past Medical History Reviewed: Historical Data, Nursing Documentation, Vital Signs Vital Signs: Last Vital Signs Temp 98.7 F 11/28/17 17:41 Pulse 91 H 11/28/17 17:41 Resp 18 11/28/17 17:41 BP 132/76 11/28/17 17:41 Pulse Ox 98 11/28/17 17:41 - Medical History PMH: Anxiety, Depression, HTN Denies: Diabetes, Hepatitis, HIV, Seizures, Sexually Transmitted Disease - Family History Family History: States: Unknown Family Hx - Immunization History Hx Tetanus Toxoid Vaccination: Yes - Home Medications Home Medications: Ambulatory Orders Medication Instructions Recorded Unobtainable 07/14/17 - Allergies Allergies/Adverse Reactions: Allergies Allergy/AdvReac Type Severity Reaction Status Date / Time No Known Allergies Allergy Verified 10/09/17 21:03 Review of Systems Review Of Systems: ROS cannot be obtained secondary to pt's inabilty to answer questions. (intoxicated) Physical Exam - Reviewed Nursing Documentation Reviewed: Yes Vital Signs Reviewed: Yes - Physical Exam Appears: Positive for: No Acute Distress Head Exam: Positive for: ATRAUMATIC, NORMAL INSPECTION, NORMOCEPHALIC Skin: Positive for: Normal Color Eye Exam: Positive for: Normal appearance ENT: Positive for: Other (small laceration noted to lower lip, no active bleeding) Neck: Positive for: Supple Respiratory: Negative for: Respiratory Distress - ECG O2 Sat by Pulse Oximetry: 98 (RA) Pulse Ox Interpretation: Normal Medical Decision Making Medical Decision Making: Impression: Alcohol intoxication Plan: -- Patient increasingly aggressive to staff, given Haldol 5mg and Ativan 2mg IM. Prior records reviewed by provider and patient had a Tetanus injection in 2016. Time: 1926 Patient signed out to Dr. Rajput pending sobriety and re-evaluation Scribe Attestation: Documented by Sandra Miramontes acting as a scribe for Cortney Sarkar MD Provider Scribe Attestation: All medical record entries made by the Scribe were at my direction and personally dictated by me. I have reviewed the chart and agree that the record accurately reflects my personal performance of the history, physical exam, medical decision making, and the department course for this patient. I have also personally directed, reviewed, and agree with the discharge instructions and disposition. Disposition - Clinical Impression Clinical Impression: Alcohol use - Patient ED Disposition Is Patient to be Admitted: Transfer of Care - Disposition Referrals: [facility] [Outside] [facility] [Outside] Disposition: Transfer of Care Disposition Time: 20:00 Condition: STABLE Additional Instructions: follow up with your primary doctor in 1-2 days return to the ED with any worsening or concerning symptoms Instructions: Alcohol Use - When Is Drinking a Problem? Forms: [facility] (Wolof) Patient Signed Over To: Omar Rajput
--- NOTE | 2017-11-28 20:09 | ED PDOC ---
- ECG O2 Sat by Pulse Oximetry: 98 (RA) Pulse Ox Interpretation: Normal Medical Decision Making Medical Decision Making: Time: 1956 Patient signed out to me by Dr. Sarkar pending labs, CT studies, clinical sobriety and reassessment. pt clinically sober, ambulating with steady gait. in no distress. CT noted below. + Head CT FINDINGS: Artifacts: Streak artifact degrades image quality.Motion artifact degrades image quality. Brain: Ventricles are normal in size and configuration. There is no midline shift. Allowing for streak and motion, no hemorrhages are identified. No masses are identified. There are no abnormal fluid collections. Pak-white differentiation is maintained. Ventricles: See above. Bones: Cranial vault is intact. Soft tissues: unremarkable Sinuses: There is no acute sinusitis. Ears and mastoids: Middle ears and mastoids are unremarkable Orbits: Orbital contents are unremarkable. IMPRESSION: Limited by patient motion, no acute intracranial abnormality Maxillofacial CT FINDINGS: Artifacts: Streak artifact degrades image quality. Motion artifact degrades image quality. Bones/joints: No facial bone fractures are identified. Soft tissues: There is left facial and periorbital soft tissue swelling. Orbits: Globes are intact.Retrobulbar structures are symmetric. Sinuses: There is no acute sinusitis. There is minimal mucoperiosteal thickening in the maxillary sinuses. Ears and mastoids: Middle ears and mastoids are unremarkable. Brain: No focal abnormalities are seen in visualized portion of the brain. Airway: Airway is unremarkable. IMPRESSION: Limited by patient motion, no fracture seen; left facial and periorbital soft tissue swelling Sugar was low. Patient was given food. Her blood sugar will be rechecked prior to discharge. Scribe Attestation: Documented by Sandra Miramontes acting as a scribe for Omar Rajput MD Provider Scribe Attestation: All medical record entries made by the Scribe were at my direction and personally dictated by me. I have reviewed the chart and agree that the record accurately reflects my personal performance of the history, physical exam, medical decision making, and the department course for this patient. I have also personally directed, reviewed, and agree with the discharge instructions and disposition. Disposition - Clinical Impression Clinical Impression: Alcohol use - POA Present On Arrival: None - Disposition Referrals: [facility] [Outside] [facility] [Outside] Disposition: Routine/Home Disposition Time: 07:00 Condition: IMPROVED Additional Instructions: follow up with your primary doctor in 1-2 days return to the ED with any worsening or concerning symptoms Instructions: Alcohol Use - When Is Drinking a Problem? Forms: [employer] (Turkmen)
--- NOTE | 2017-11-28 20:56 | CT ---
EXAM: CT Head Without Intravenous Contrast EXAM DATE/TIME: 11/28/2017 6:26 PM CLINICAL HISTORY: 37 years old, female; Injury or trauma; Fall; Initial encounter; Blunt trauma (contusions or hematomas); Consciousness not specified; Additional info: Facial injury TECHNIQUE: Axial computed tomography images of the head/brain without intravenous contrast. All CT scans at this facility use one or more dose reduction techniques, viz.: automated exposure control; ma/kV adjustment per patient size (including targeted exams where dose is matched to indication; i.e. head); or iterative reconstruction technique. Coronal and sagittal reformatted images were created and reviewed. COMPARISON: CT - HEAD W/O CONTRAST 2017-05-18 03:13 FINDINGS: Artifacts: Streak artifact degrades image quality.Motion artifact degrades image quality. Brain: Ventricles are normal in size and configuration. There is no midline shift. Allowing for streak and motion, no hemorrhages are identified. No masses are identified. There are no abnormal fluid collections. Pak-white differentiation is maintained. Ventricles: See above. Bones: Cranial vault is intact. Soft tissues: unremarkable Sinuses: There is no acute sinusitis. Ears and mastoids: Middle ears and mastoids are unremarkable Orbits: Orbital contents are unremarkable. IMPRESSION: Limited by patient motion, no acute intracranial abnormality
--- NOTE | 2017-11-28 21:01 | CT ---
EXAM: CT Maxillofacial Without Intravenous Contrast EXAM DATE/TIME: 11/28/2017 6:27 PM CLINICAL HISTORY: 37 years old, female; Injury or trauma; Fall; Initial encounter; Blunt trauma (contusions or hematomas); Cheek bone; Left; Additional info: Facial injury TECHNIQUE: Axial computed tomography images of the face without intravenous contrast. All CT scans at this facility use one or more dose reduction techniques, viz.: automated exposure control; ma/kV adjustment per patient size (including targeted exams where dose is matched to indication; i.e. head); or iterative reconstruction technique. Coronal and sagittal reformatted images were created and reviewed. COMPARISON: CT - MAXILLOFACIAL W/O CONTRAST 2017-05-18 03:15 FINDINGS: Artifacts: Streak artifact degrades image quality.Motion artifact degrades image quality. Bones/joints: No facial bone fractures are identified. Soft tissues: There is left facial and periorbital soft tissue swelling. Orbits: Globes are intact.Retrobulbar structures are symmetric. Sinuses: There is no acute sinusitis. There is minimal mucoperiosteal thickening in the maxillary sinuses. Ears and mastoids: Middle ears and mastoids are unremarkable. Brain: No focal abnormalities are seen in visualized portion of the brain. Airway: Airway is unremarkable. IMPRESSION: Limited by patient motion, no fracture seen; left facial and periorbital soft tissue swelling
[2017-11-29] MEDS ORDERED: Sodium Chloride 0.9% 1,000 ML IV STA (00:56)
[2017-11-29] MEDS ORDERED: Dextrose 50% SYRINGE Inj (50 ml) ONE (06:22)
[2017-11-29 06:56] VITALS: BP 100/62; PULSE 78; RESP 16
[2017-12-01 13:08] VITALS: O2SAT 98
== END 2017-11-29 07:16 | disposition home or self-care (01) ==
LOC: H.ER 17:38
DX: F10.129 Alcohol abuse with intoxication, unspecified (principal); Z86.59 Personal history of other mental and behavioral disorders; I10 Essential (primary) hypertension; S09.93XA Unspecified injury of face, initial encounter; S09.90XA Unspecified injury of head, initial encounter
CPT/HCPCS: 70450; 70486; 81025; 82948; 84702; 96360; 96372; 99285; G0480; J1630; J2060; J7040

== ENCOUNTER 2017-12-06 21:18 | Emergency (ER) | payer SELFPAY ==
[2017-12-06 21:19] VITALS: BMI 23.4
== END 2017-12-06 21:57 | disposition left against medical advice (07) ==
LOC: H.ER 21:18
DX: Z02.89 Encounter for other administrative examinations (principal)

== ENCOUNTER 2017-12-07 15:02 | Emergency (ER) | payer SELFPAY ==
[2017-12-07 15:02] VITALS: BMI 23.4
[2017-12-07 15:47] VITALS: RESP 18; O2SAT 97
--- NOTE | 2017-12-07 18:08 | CT ---
PROCEDURE: CT HEAD WITHOUT CONTRAST. HISTORY: possible fall COMPARISON: 11/28/2017 TECHNIQUE: Axial computed tomography images were obtained through the head/brain without intravenous contrast. Radiation dose: Total exam DLP = 1262.79 mGy-cm. This CT exam was performed using one or more of the following dose reduction techniques: Automated exposure control, adjustment of the mA and/or kV according to patient size, and/or use of iterative reconstruction technique. FINDINGS: HEMORRHAGE: No intracranial hemorrhage. BRAIN: No mass effect or edema. Please note that examination is limited due to patient motion artifact. No evidence of acute infarct. VENTRICLES: Unremarkable. No hydrocephalus. CALVARIUM: Unremarkable. PARANASAL SINUSES: Unremarkable as visualized. No significant inflammatory changes. MASTOID AIR CELLS: Unremarkable as visualized. No inflammatory changes. OTHER FINDINGS: None. IMPRESSION: Normal CT of the Head. No intracranial hemorrhage. Limited due to patient motion artifact.
--- NOTE | 2017-12-07 18:37 | ED PDOC ---
HPI: Psych/Substance Abuse Time Seen by Provider: 12/07/17 15:15 Chief Complaint (Nursing): Alcohol Ingestion Chief Complaint (Provider): Alcohol Ingestion ED Caveat: Uncooperative History Per: Patient, EMS History/Exam Limitations: no limitations Onset/Duration Of Symptoms: Mins (prior to arrival ) Current Symptoms Are (Timing): Still Present Additional Complaint(s): 37 year old female brought to the ED via EMS due to alcohol intoxication. According to EMS, patent fell outside on the streets. She admits to drinking and falling today, hitting her head. Patient could not further elaborate how she fell and was unable to provide more history regarding symptoms. Past Medical History Reviewed: Historical Data, Nursing Documentation, Vital Signs Vital Signs: Last Vital Signs Temp 98.5 F 12/07/17 15:47 Pulse 83 12/07/17 15:47 Resp 18 12/07/17 15:47 BP 141/100 H 12/07/17 15:47 Pulse Ox 97 12/07/17 15:47 - Medical History PMH: Anxiety, Depression, HTN Denies: Diabetes, Hepatitis, HIV, Seizures, Sexually Transmitted Disease - Surgical History Surgical History: No Surg Hx - Family History Family History: States: Unknown Family Hx - Immunization History Hx Tetanus Toxoid Vaccination: Yes - Home Medications Home Medications: Ambulatory Orders Medication Instructions Recorded Unobtainable 07/14/17 - Allergies Allergies/Adverse Reactions: Allergies Allergy/AdvReac Type Severity Reaction Status Date / Time No Known Allergies Allergy Verified 12/07/17 15:06 Review of Systems ROS Statement: Except As Marked, All Systems Reviewed And Found Negative Constitutional: Positive for: Other (intoxication) Physical Exam - Physical Exam Comments: GENERAL APPEARANCE: Patient is awake, alert, smells of alcohol, in no acute distress, no visible signs of trauma, uncooperative. SKIN: Warm, dry; (-) cyanosis HEAD: (-) scalp swelling, (-) scalp tenderness. EYES: (-) conjunctival pallor, (-) scleral icterus, (-) nystagmus. ENMT: Mucous membranes moist. Airway patent: (-) stridor. NECK: (-) tenderness, (-) stiffness, (-) lymphadenopathy. CHEST AND RESPIRATORY: (-) rales, (-) rhonchi, (-) wheezes; breath sounds equal. ABDOMEN: Soft, (-) distention, (-) tenderness, (-) guarding. NEURO AND PSYCH: Mental status as above. Affect: Calm and cooperative. general house worker: Intact. Pupils equal and reactive; EOMI; (-) facial asymmetry; tongue and uvula midline. Strength and DTRs symmetric. - ECG O2 Sat by Pulse Oximetry: 97 (RA) Pulse Ox Interpretation: Normal Medical Decision Making Medical Decision Making: Time: 15:30 Impression: alcohol intoxication Initial Plan: --CT head --POC preg --1:1 observation Patient will be kept under observation until she is sober. POC uhcg (-). Time: 18:26 --Patient is resting comfortably since she returned from CT without incident. She has no complaints. Laron Alcaraz called ER. States he is working right now and will pick her up later. CT head w/o contrast : FINDINGS: HEMORRHAGE: No intracranial hemorrhage. BRAIN: No mass effect or edema. Please note that examination is limited due to patient motion artifact. No evidence of acute infarct. VENTRICLES: Unremarkable. No hydrocephalus. CALVARIUM: Unremarkable. PARANASAL SINUSES: Unremarkable as visualized. No significant inflammatory changes. MASTOID AIR CELLS: Unremarkable as visualized. No inflammatory changes. OTHER FINDINGS: None. IMPRESSION: Normal CT of the Head. No intracranial hemorrhage. Limited due to patient motion artifact. Time: 21:06 --Patient is Awake, alert, oriented x 3, no distress walking with steady gait. At this time, she is calm and cooperative. Patient informed that is coming at 11pm to pick her up, agreed to wait. Time : 21:50 --Patient is refusing to wait for her . States that she wants to leave and she will find him. Patient remains AAOx3, speakingin full sentences, no slurred speech, ambulating with a normal gait. Patient's called, however the phone number provided is wrong, unable to reach patient's . Patient states she would like to leave, is cleared for d/c. Advised to follow up with the clinic in 1-2 days without fail. Return to the emergency room at any time for any new or worsening symptoms. Patient states she fully agrees with and understands discharge instructions. States that she agrees with the plan and disposition. Verbalized and repeated discharge instructions and plan. I have given the patient opportunity to ask any additional questions. ---- Scribe Attestation: Documented by Cecy Grace, acting as a scribe for Milly Pinon PA-C Provider Scribe Attestation: All medical record entries made by the Scribe were at my direction and personally dictated by me. I have reviewed the chart and agree that the record accurately reflects my personal performance of the history, physical exam, medical decision making, and the department course for this patient. I have also personally directed, reviewed, and agree with the discharge instructions and disposition. Disposition - Clinical Impression Clinical Impression: Alcohol abuse with intoxication, Head injury - Patient ED Disposition Is Patient to be Admitted: No Counseled Patient/Family Regarding: Studies Performed, Diagnosis, Need For Followup - Disposition Referrals: [facility] [Outside] Disposition: Routine/Home Disposition Time: 21:50 Condition: STABLE Instructions: Closed Head Injury, Alcohol Abuse and Alcoholism (DC) Forms: [employer] (Thai) - PA / MARKETING INTERN / Resident Statement / has reviewed & agrees with the documentation as recorded.
[2017-12-07 21:33] VITALS: BP 137/78; PULSE 88; TEMP 98.8
== END 2017-12-07 21:33 | disposition home or self-care (01) ==
LOC: H.ER 15:02
DX: F10.129 Alcohol abuse with intoxication, unspecified (principal); S09.90XA Unspecified injury of head, initial encounter; W19.XXXA Unspecified fall, initial encounter; Y92.89 Other specified places as the place of occurrence of the external cause; F32.9 Major depressive disorder, single episode, unspecified; F41.9 Anxiety disorder, unspecified; I10 Essential (primary) hypertension

== ENCOUNTER 2017-12-08 00:27 | Emergency (ER) | payer SELFPAY ==
[2017-12-08 00:36] VITALS: BMI 17.2
[2017-12-08 00:46] VITALS: O2SAT 98
[2017-12-08] MEDS ORDERED: Sodium Chloride 0.9% 1,000 ML IV STA (00:50)
[2017-12-08 01:45] LABS: BASO # 0.1 K/uL (0.0-0.2); BASO % 1.6 % (0.0-2.0); EOS % 0.2 % (0.0-4.0); HEMOGLOBIN 13.3 g/dL (12.0-16.0); LYMPH # 1.8 K/uL (1.0-4.3); LYMPH % 34.2 % (20.0-40.0); MEAN CELL VOLUME 96.3 fl (81.0-99.0); MEAN CORPUSCULAR HEMOGLOBIN 32.1 pg (27.0-31.0); MEAN CORPUSCULAR HGB CONC 33.3 g/dL (33.0-37.0); MEAN PLATELET VOLUME 8.8 fl (7.2-11.7); MONO # 0.4 K/uL (0.0-0.8); MONO % 6.8 % (0.0-10.0); NEUT % 57.2 % (50.0-75.0); NRBC % 0.2 % (0.0-0.0); RBC 4.14 Mil/uL (3.80-5.20); RED CELL DISTRIBUTION WIDTH 15.4 % (11.5-14.5); WHITE BLOOD COUNT 5.3 K/uL (4.8-10.8)
[2017-12-08 01:56] LABS: SQUAMOUS EPITHIAL 2 /hpf (0-5); URINE BILIRUBIN NEGATIVE (NEGATIVE); URINE BLOOD SMALL (NEGATIVE); URINE CLARITY CLEAR (Clear); URINE COLOR YELLOW (YELLOW); URINE GLUCOSE (UA) NEG (Normal); URINE LEUKOCYTE ESTERASE NEG Leu/uL (Negative); URINE PROTEIN 30 mg/dL (NEGATIVE); URINE UROBILINOGEN 0.2-1.0 mg/dL (0.2-1.0)
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
[2017-12-08 02:17] LABS: BLOOD UREA NITROGEN 8 mg/dl (7-17); GFR AFRICAN-AMERICAN > 60; GFR NON-AFRICAN AMERICAN > 60
[2017-12-08 02:18] LABS: ALB/GLOB RATIO 1.3 (1.0-2.1); ALBUMIN 4.5 g/dL (3.5-5.0); AST/SGOT 118 U/L (14-36); CALCIUM 9.1 mg/dL (8.4-10.2)
[2017-12-08 02:19] LABS: ALT/SGPT 94 U/L (9-52); LIPASE 67 U/L (23-300)
--- NOTE | 2017-12-08 07:18 | ED PDOC ---
- Laboratory Results Result Diagrams: 12/08/17 01:35 12/08/17 01:35 - ECG O2 Sat by Pulse Oximetry: 98 (RA) Pulse Ox Interpretation: Normal Medical Decision Making Medical Decision Making: Receiving sign out: Patient signed out to me by Dr. Mcnulty at 0700 pending clinical sobriety and reevaluation. 1036 Patient is alert and awake. Ambulatory with steady gait. Scribe Attestation: Documented by Sandra Miramontes acting as a scribe for Annmarie Toure MD. Provider Attestation: All medical record entries made by the Scribe were at my direction and personally dictated by me. I have reviewed the chart and agree that the record accurately reflects my personal performance of the history, physical exam, medical decision making, and the department course for this patient. I have also personally directed, reviewed, and agree with the discharge instructions and disposition. Disposition Doctor Will See Patient In The: Office Counseled Patient/Family Regarding: Studies Performed, Diagnosis, Need For Followup - Clinical Impression Clinical Impression: Alcohol intoxication, Alcohol use disorder - POA Present On Arrival: None - Disposition Referrals: [facility] [Outside] Disposition: Routine/Home Disposition Time: 10:35 Condition: GOOD Instructions: Alcohol Abuse and Alcoholism (DC)
[2017-12-08] MEDS ORDERED: Potassium Chloride 20 mEq ER Tab PO ONE ×2 (07:32→09:45)
[2017-12-08 08:11] VITALS: RESP 19
[2017-12-08 11:01] VITALS: BP 120/78; PULSE 92; TEMP 97
== END 2017-12-08 11:14 | disposition home or self-care (01) ==
LOC: H.ER 00:27
DX: F10.129 Alcohol abuse with intoxication, unspecified (principal); F32.9 Major depressive disorder, single episode, unspecified; F41.9 Anxiety disorder, unspecified; I10 Essential (primary) hypertension
CPT/HCPCS: 80053; 81003; 81025; 82948; 83690; 85025; 96372; 99284; G0480; J1630; J2060; J2405; J7040

== ENCOUNTER 2017-12-22 02:23 | Emergency (ER) | payer SELFPAY ==
[2017-12-22 02:24] VITALS: BMI 17.2
[2017-12-22 03:07] VITALS: RESP 16
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
[2017-12-22 06:08] VITALS: BP 98/49; PULSE 68; TEMP 97.8
[2017-12-22 06:20] VITALS: O2SAT 98
== END 2017-12-22 06:40 | disposition home or self-care (01) ==
LOC: H.ER 02:23
DX: F10.129 Alcohol abuse with intoxication, unspecified (principal); S09.90XA Unspecified injury of head, initial encounter; W01.0XXA Fall on same level from slipping, tripping and stumbling without subsequent striking against object, initial encounter; Y92.89 Other specified places as the place of occurrence of the external cause; F32.9 Major depressive disorder, single episode, unspecified; F41.9 Anxiety disorder, unspecified; I10 Essential (primary) hypertension
CPT/HCPCS: 82948; 99284; G0480

== ENCOUNTER 2017-12-29 00:19 | Emergency (ER) | payer SELFPAY ==
[2017-12-29 00:19] VITALS: BMI 17.2
[2017-12-29 00:34] VITALS: TEMP 98; O2SAT 98
[2017-12-29] MEDS ORDERED: Tdap Vaccine 0.5 ml Vial (10-64 yrs) IM ONE ×2 (01:25→02:36)
--- NOTE | 2017-12-29 01:42 | ED PDOC ---
HPI: General Adult Time Seen by Provider: 12/29/17 00:51 Chief Complaint (Nursing): Abnormal Skin Integrity Chief Complaint (Provider): Abnormal Skin Integrity History Per: Patient History/Exam Limitations: no limitations Additional Complaint(s): 37 year old female presents to the emergency department with a laceration to the right side of her chin that is about 3 cm in length. Patient was intoxicated when she fell and sustained laceration. Patient is well known to the provider with multiple visits to this emergency department. Denies any further medical complaints. Past Medical History Reviewed: Historical Data, Nursing Documentation, Vital Signs Vital Signs: Last Vital Signs Temp 98 F 12/29/17 00:31 Pulse 90 12/29/17 11:00 Resp 18 12/29/17 11:00 BP 140/88 12/29/17 11:00 Pulse Ox 98 12/29/17 11:00 - Medical History PMH: Anxiety, Depression, HTN Denies: Diabetes, Hepatitis, HIV, Seizures, Sexually Transmitted Disease - Surgical History Surgical History: No Surg Hx - Family History Family History: States: Unknown Family Hx - Immunization History Hx Tetanus Toxoid Vaccination: Yes - Home Medications Home Medications: Ambulatory Orders Medication Instructions Recorded Acetaminophen [Acetaminophen 8 650 mg PO TID PRN #12 tablet.er 12/22/17 Hour] - Allergies Allergies/Adverse Reactions: Allergies Allergy/AdvReac Type Severity Reaction Status Date / Time No Known Allergies Allergy Verified 12/07/17 15:06 Review of Systems Review Of Systems: ROS cannot be obtained secondary to pt's inabilty to answer questions. Skin: Positive for: Other (3 cm laceration noted to the right side of the chin ) Physical Exam - Reviewed Nursing Documentation Reviewed: Yes Vital Signs Reviewed: Yes - Physical Exam Appears: Positive for: No Acute Distress Head Exam: Positive for: NORMAL INSPECTION (Laceration to the right side of the chin about 3 cm) Skin: Positive for: Normal Color, Warm, Dry ENT: Positive for: Other (3cm linera laceration to right chin is noted with subcutaneous tissue exposure) Cardiovascular/Chest: Positive for: Regular Rate, Rhythm. Negative for: Murmur Respiratory: Positive for: Normal Breath Sounds. Negative for: Accessory Muscle Use, Respiratory Distress Neurologic/Psych: Positive for: Alert, Oriented (x3) - ECG O2 Sat by Pulse Oximetry: 98 (RA) Pulse Ox Interpretation: Normal - Critical Care Total Time (In Min): 30 Medical Decision Making Medical Decision Making: Time: 50 Initial Impression: Laceration s/p intoxication Initial Plan: --Alcohol serum --Drug Screen, urine --Urine DIP and Preg --Tetanus 0.5 mL IM --Head CT --Reevaluation Time: 220 --Haldol 5 mg IM --Ativan 2 mg IM --Ativan 2 mg IM Time: 413 --Lidocaine 1% 3 ml IJ --Procedure within LAC REPAIR tab Time: 533 --Head CT FINDINGS: Brain: Unremarkable. No hemorrhage. No significant white matter disease. No edema. Ventricles: Unremarkable. No ventriculomegaly. Bones/joints: Unremarkable. No acute fracture. Soft tissues: Possible minimal scarring or contusion in the left posterior parietal scalp. Sinuses: Unremarkable. No acute sinusitis. Mastoid air cells: Unremarkable. No mastoid effusion. Orbits: The globe and lens are intact. IMPRESSION: No evidence of an acute intracranial hemorrhage, midline shift or mass effect is identified Scribe Attestation: Documented by Aide Herron acting as a scribe for Tim Mcnulty MD. Scribe Attestation: All medical record entries made by the Scribe were at my direction and personally dictated by me. I have reviewed the chart and agree that the record accurately reflects my personal performance of the history, physical exam, medical decision making, and the department course for this patient. I have also personally directed, reviewed, and agree with the discharge instructions and disposition. Disposition - Clinical Impression Clinical Impression: Alcohol intoxication, Laceration of chin - Disposition Referrals: [facility] [Outside] Disposition: Transfer of Care Disposition Time: 07:00 Condition: FAIR Instructions: Alcohol Abuse and Alcoholism (DC) Forms: [employer] (Latvian) Laceration - Laceration Repair laceration repair Wound Length (In cm): 3 Anesthesia: Lidocaine 1% (local) Wound Examination: Irrigated With Saline Wound Closure: Suture Suture Technique And Material Used: Prolene (5 4.0 ) Wound Complexity: Simple (and then covered with bacitracin ointment)
[2017-12-29] MEDS ORDERED: Lidocaine 1% Inj (20ml) IJ ONE (04:14)
[2017-12-29] MEDS ORDERED: Lidocaine 1% 20 MG/2 ML PF AMP ONE (04:15)
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
--- NOTE | 2017-12-29 09:08 | ED PDOC ---
- ECG O2 Sat by Pulse Oximetry: 98 (RA) - Progress Re-evaluation Time: 09:06 Condition: Improved (Awake alert oriented x 3 no focal neuro deficits) Disposition - Clinical Impression Clinical Impression: Alcohol intoxication - POA Present On Arrival: None - Disposition Referrals: [facility] [Outside] Disposition: Routine/Home Disposition Time: 09:07 Condition: FAIR Instructions: Alcohol Abuse and Alcoholism (DC) Forms: [email or web address] (Nicaraguan)
[2017-12-29 13:27] VITALS: BP 140/88; PULSE 90; RESP 18
== END 2017-12-29 11:28 | disposition home or self-care (01) ==
LOC: H.ER 00:19
DX: F10.129 Alcohol abuse with intoxication, unspecified (principal); S01.81XA Laceration without foreign body of other part of head, initial encounter; W19.XXXA Unspecified fall, initial encounter; Y92.89 Other specified places as the place of occurrence of the external cause; I10 Essential (primary) hypertension; F32.9 Major depressive disorder, single episode, unspecified; F41.9 Anxiety disorder, unspecified
CPT/HCPCS: 12011; 70450; 81025; 82948; 90471; 90715; 96372; 96374; 99285; G0480; J1630; J2060

== ENCOUNTER 2018-01-04 16:12 | Emergency (ER) | payer SELFPAY ==
[2018-01-04 16:12] VITALS: BMI 17.2
[2018-01-04 16:22] VITALS: RESP 16; O2SAT 97
[2018-01-04] MEDS ORDERED: Sodium Chloride 0.9% 1,000 ML IV STA (16:47)
[2018-01-04 17:18] LABS: BASO % 0.3 % (0.0-2.0); EOS % 0.5 % (0.0-4.0); HEMOGLOBIN 12.9 g/dL (12.0-16.0); LYMPH # 1.9 K/uL (1.0-4.3); LYMPH % 46.5 % (20.0-40.0); MEAN CELL VOLUME 97.5 fl (81.0-99.0); MEAN CORPUSCULAR HEMOGLOBIN 32.6 pg (27.0-31.0); MEAN CORPUSCULAR HGB CONC 33.4 g/dL (33.0-37.0); MEAN PLATELET VOLUME 8.7 fl (7.2-11.7); MONO # 0.4 K/uL (0.0-0.8); MONO % 10.9 % (0.0-10.0); NEUT # 1.7 K/uL (1.8-7.0); NEUT % 41.8 % (50.0-75.0); NRBC % 0.3 % (0.0-0.0); RBC 3.95 Mil/uL (3.80-5.20)
[2018-01-04 17:29] LABS: ALB/GLOB RATIO 1.2 (1.0-2.1); ALBUMIN 4.3 g/dL (3.5-5.0); ALT/SGPT 54 U/L (9-52); AST/SGOT 56 U/L (14-36); BLOOD UREA NITROGEN 10 mg/dl (7-17); CALCIUM 9.2 mg/dL (8.4-10.2); GFR AFRICAN-AMERICAN > 60; GFR NON-AFRICAN AMERICAN > 60
--- NOTE | 2018-01-04 17:34 | ED PDOC ---
HPI: Chest Pain Time Seen by Provider: 01/04/18 16:30 Chief Complaint (Nursing): Chest Pain Chief Complaint (Provider): Chest pain History Per: Patient History/Exam Limitations: no limitations Onset/Duration Of Symptoms: Persistent Current Symptoms Are (Timing): Still Present Additional Complaint(s): 37yo female, presents to ED with complaints of constant chest pain for the past week. Patient states the pain is mid-sternal, non-radiating and denies any trauma or injury to the area. She does report some shortness of breath but denies any associated calf pain, recent travels, surgeries, long periods of immobilizations, or control use. She does report alcohol use but denies any suicidal ideation, homicidal ideation or hallucinations. Patient was seen in this ER on 12/29/17 for evaluation of a chin laceration after a fall, and had sutures placed. She is currently complaining of swelling to the suture site. She denies any new falls, head injury, loss of consciousness. She has no other medical complaints. Past Medical History Reviewed: Historical Data, Nursing Documentation, Vital Signs Vital Signs: Last Vital Signs Temp 98.1 F 01/04/18 16:22 Pulse 88 01/04/18 17:10 Resp 16 01/04/18 16:22 BP 147/95 H 01/04/18 16:22 Pulse Ox 97 01/04/18 20:38 - Medical History PMH: Anxiety, Depression, HTN Denies: Diabetes, Hepatitis, HIV, Seizures, Sexually Transmitted Disease - Family History Family History: States: Unknown Family Hx - Social History Alcohol: > 2 Drinks/Day - Immunization History Hx Tetanus Toxoid Vaccination: Yes - Home Medications Home Medications: Ambulatory Orders Medication Instructions Recorded Acetaminophen [Acetaminophen 8 650 mg PO TID PRN #12 tablet.er 12/22/17 Hour] - Allergies Allergies/Adverse Reactions: Allergies Allergy/AdvReac Type Severity Reaction Status Date / Time No Known Allergies Allergy Verified 01/04/18 16:18 Review of Systems ROS Statement: Except As Marked, All Systems Reviewed And Found Negative Constitutional: Negative for: Fever, Chills Cardiovascular: Positive for: Chest Pain Respiratory: Positive for: Shortness of Breath Musculoskeletal: Negative for: Leg Pain Neurological: Negative for: Other (head injury, loss of consciousness) Physical Exam - Reviewed Nursing Documentation Reviewed: Yes Vital Signs Reviewed: Yes - Physical Exam Appears: Positive for: No Acute Distress Head Exam: Positive for: ATRAUMATIC, NORMAL INSPECTION, NORMOCEPHALIC Skin: Positive for: Warm, Dry Eye Exam: Positive for: EOMI, PERRL ENT: Positive for: Normal ENT Inspection, Other (sutures noted to left chin, mild swelling noted. No erythema, tenderness or fluctuance noted.) Neck: Positive for: Normal, Painless ROM, Supple Cardiovascular/Chest: Positive for: Regular Rate, Rhythm, Chest Non Tender. Negative for: Murmur Respiratory: Positive for: Normal Breath Sounds. Negative for: Wheezing Gastrointestinal/Abdominal: Positive for: Normal Exam, Soft. Negative for: Tenderness Back: Positive for: Normal Inspection. Negative for: L CVA Tenderness, R CVA Tenderness Extremity: Positive for: Normal ROM. Negative for: Pedal Edema, Deformity, Swelling Neurologic/Psych: Positive for: Alert, Oriented. Negative for: Motor/Sensory Deficits - Laboratory Results Result Diagrams: 01/04/18 17:11 01/04/18 17:11 Interpretation Of Abn Labs: 304 etoh - ECG ECG: Positive for: Interpreted By Me, Viewed By Me ECG Rhythm: Positive for: Normal QRS, Normal ST Segment, Sinus Rhythm O2 Sat by Pulse Oximetry: 97 (RA) Pulse Ox Interpretation: Normal - Radiology X-Ray: Read By Radiologist X-Ray Interpretation: No Acute Disease - Progress ED Course And Treament: 2026: Stable. AAOx3. Pt. aggressive and possible threat to self and staff. Will give ativan. 2051: Pt. cousin at bedside and will take responsibility of pt. Will take pt. home. Pt. aaox3. Ambulating. Medical Decision Making Medical Decision Making: Impression: Chest pain, likely musculoskeletal Plan: -- Prior visit reviewed and patient had a CT Head on 12/29/17 which indicated no acute findings. -- EKG -- Labs -- Chest X-Ray -- Toradol 15mg IV -- IV Fluids Scribe Attestation: Documented by Sandra Miramontes acting as a scribe for Roge Mccoy MD Provider Attestation: All medical record entries made by the Scribe were at my direction and personally dictated by me. I have reviewed the chart and agree that the record accurately reflects my personal performance of the history, physical exam, medical decision making, and the department course for this patient. I have also personally directed, reviewed, and agree with the discharge instructions and disposition. Disposition - Clinical Impression Clinical Impression: Chest pain, Alcohol use - Patient ED Disposition Is Patient to be Admitted: No Counseled Patient/Family Regarding: Studies Performed, Diagnosis, Need For Followup - Disposition Referrals: [facility] [Outside] - 01/07/18 Disposition: Routine/Home Disposition Time: 20:54 Condition: STABLE Additional Instructions: Return if not better in 3 days. Instructions: Chest Pain, Alcohol Use - When Is Drinking a Problem? Forms: [employer] (Lithuanian)
[2018-01-04 18:27] LABS: BARBITURATES, UR NEGATIVE (NEGATIVE); BENZODIAZEPINES, UR NEGATIVE (NEGATIVE); OPIATES, UR NEGATIVE (NEGATIVE); PHENCYCLIDINE, UR NEGATIVE (NEGATIVE)
[2018-01-04 22:02] VITALS: BP 134/68; PULSE 78; TEMP 98.2
--- NOTE | 2018-01-05 08:23 | RAD ---
HISTORY: pain COMPARISON: No prior. FINDINGS: LUNGS: No active pulmonary disease. PLEURA: No significant pleural effusion identified, no pneumothorax apparent. CARDIOVASCULAR: Normal. OSSEOUS STRUCTURES: No significant abnormalities. VISUALIZED UPPER ABDOMEN: Normal. OTHER FINDINGS: None. IMPRESSION: No active disease.
--- NOTE | 2018-01-05 08:42 | CARD ---
APPROVED REPORT EKG Measurement Heart [id number] <Conclusion> Normal sinus rhythm Normal ECG
== END 2018-01-04 21:00 | disposition home or self-care (01) ==
LOC: H.ER 16:12
DX: R07.89 Other chest pain (principal); F10.10 Alcohol abuse, uncomplicated; F32.9 Major depressive disorder, single episode, unspecified; F41.9 Anxiety disorder, unspecified; I10 Essential (primary) hypertension
CPT/HCPCS: 71045; 80053; 81025; 84484; 85025; 93005; 96361; 96374; 99285; G0480; J2060; J7040

== ENCOUNTER 2018-01-10 12:33 | Emergency (ER) | payer SELFPAY ==
[2018-01-10 12:33] VITALS: BMI 17.2
--- NOTE | 2018-01-10 15:13 | ED PDOC ---
HPI: Psych/Substance Abuse Time Seen by Provider: 01/10/18 12:40 Chief Complaint (Nursing): Psychiatric Evaluation Chief Complaint (Provider): EtOH ED Caveat: Intoxicated History Per: EMS History/Exam Limitations: intoxication Additional Complaint(s): 37yo female, brought to ER by EMS after she was found publicly intoxicated. Patient is a poor historian due to her intoxicated state. Pt denies SI/HI. Past Medical History Reviewed: Historical Data, Nursing Documentation, Vital Signs Vital Signs: Last Vital Signs Temp 96.9 F L 01/10/18 14:57 Pulse 73 01/10/18 14:57 Resp 16 01/10/18 14:57 BP 112/70 01/10/18 14:57 Pulse Ox 95 01/10/18 14:57 - Medical History PMH: Anxiety, Depression, HTN Denies: Diabetes, Hepatitis, HIV, Seizures, Sexually Transmitted Disease - Family History Family History: States: Unknown Family Hx - Social History Alcohol: > 2 Drinks/Day - Immunization History Hx Tetanus Toxoid Vaccination: Yes - Home Medications Home Medications: Ambulatory Orders Medication Instructions Recorded Acetaminophen [Acetaminophen 8 650 mg PO TID PRN #12 tablet.er 12/22/17 Hour] - Allergies Allergies/Adverse Reactions: Allergies Allergy/AdvReac Type Severity Reaction Status Date / Time No Known Allergies Allergy Verified 01/10/18 12:37 Review of Systems Review Of Systems: ROS cannot be obtained secondary to pt's inabilty to answer questions. (patient intoxicated, poor historian) Physical Exam - Reviewed Nursing Documentation Reviewed: Yes Vital Signs Reviewed: Yes - Physical Exam Appears: Positive for: No Acute Distress Head Exam: Positive for: ATRAUMATIC, NORMAL INSPECTION, NORMOCEPHALIC Skin: Positive for: Normal Color Eye Exam: Positive for: Normal appearance Neck: Positive for: Supple Cardiovascular/Chest: Positive for: Regular Rate, Rhythm Respiratory: Positive for: Normal Breath Sounds. Negative for: Respiratory Distress Gastrointestinal/Abdominal: Positive for: Normal Exam, Soft. Negative for: Tenderness Back: Positive for: Normal Inspection Extremity: Positive for: Normal ROM. Negative for: Deformity, Swelling Neurologic/Psych: Positive for: Gait (unsteady), Other (slurred speech) - ECG O2 Sat by Pulse Oximetry: 95 (RA) Pulse Ox Interpretation: Normal Medical Decision Making Medical Decision Making: Impression: alcohol intoxication Plan: -- Labs -- Ativan 2mg IM -- 1:1 observation 1700: Pt sleeping comfortable - HR 86, RR 15, BP 115/79 and oxygen at 96% 2110: Pt ambulates to restroom. Pt reports SI/HI. Pt alert and oriented. Pt states she needs to leave to go to court. Scribe Attestation: Documented by Sandra Miramontes, acting as a scribe for SAUL Galicia. Provider Scribe Attestation: All medical record entries made by the Scribe were at my direction and personally dictated by me. I have reviewed the chart and agree that the record accurately reflects my personal performance of the history, physical exam, medical decision making, and the department course for this patient. I have also personally directed, reviewed, and agree with the discharge instructions and disposition. Disposition - Clinical Impression Clinical Impression: Alcohol abuse - Patient ED Disposition Is Patient to be Admitted: No - Disposition Disposition: Routine/Home Disposition Time: 21:18 Condition: STABLE Instructions: Alcohol Abuse and Alcoholism (DC) Forms: [employer] (American)
[2018-01-10 21:18] VITALS: BP 124/73; RESP 18; TEMP 97.8
[2018-01-10 21:49] VITALS: PULSE 84; O2SAT 100
== END 2018-01-10 21:49 | disposition home or self-care (01) ==
LOC: H.ER 12:33
DX: F10.129 Alcohol abuse with intoxication, unspecified (principal); F32.9 Major depressive disorder, single episode, unspecified; F41.9 Anxiety disorder, unspecified; I10 Essential (primary) hypertension
CPT/HCPCS: 82948; 99284; G0480